=== PATIENT | female | born 1965 | race Caucasian/White ===

== ENCOUNTER 2016-11-20 10:15 | Emergency (ER) | payer OTHER, MEDICAID ==
[~2016-11-20] VITALS: Ht 160 cm; Wt 60.0 kg
[~2016-11-20 10:15] MED LIST: HYDR-3533 PO; METH750T2 PO
[2016-11-20 10:17] VITALS: BP 223/126; PULSE 101; RESP 15; TEMP 98.2; O2SAT 98
[2016-11-20 11:16] VITALS: BP 182/110; PULSE 90; RESP 18; O2SAT 98
--- NOTE | 2016-11-20 11:27 | PD ---
HPI Chief Complaint: Pain: Acute or Chronic Time Seen by Provider: 11:21 Travel History International Travel<30 days: No Contact w/Intl Traveler<30days: No History of Present Illness HPI 50-year-old female presents to the emergency department for evaluation of right upper back pain that started yesterday. She states she has associated shortness of breath. She states the pain is worse with breathing. Patient states the pain is sharp in nature. She denies any cough, congestion, fevers. She states she has chronic low back pain has been going on for several years. Low back pain is unchanged. She is concerned that she may have a urinary tract infection, but denies any dysuria, urinary frequency, urinary urgency. Patient denies any nausea or vomiting. She was a history of hypertension, but has been off her blood pressure medications for several years. She states she was previously on hydrochlorothiazide and lisinopril. However, she has not taken these in years. She does not currently have a primary care physician. Patient is a current tobacco smoker. Denies any illegal drug use. Patient denies he lost bladder control. No saddle anesthesias. Patient denies any history of DVT or PE. PFSH Past Medical History Diminished Hearing: No Hypertension: Yes ?: Not Past Surgical History Abdominal Surgery: Yes (HERNIA REPAIR) Section: Yes Cholecystectomy: Yes Social History Alcohol Use: No Tobacco Use: Yes Substance Use: No Allergies-Medications (Allergen,Severity, Reaction): Coded Allergies: Codeine (Verified Allergy, Mild, VOMITING, 11/20/16) Penicillin (Verified Allergy, Mild, SICK TO STOMACH AND EYE SWELLING, 11/20) Tylenol #3 (Verified Allergy, Mild, SICK, 11/20/16) Darvocet-N 100 (Verified Adverse Reaction, Mild, VOMITING, 11/20/16) Erythromycin (Verified Adverse Reaction, Mild, VOMITING, 11/20/16) Reported Meds & Prescriptions Reported Meds & Active Scripts Active Robaxin (Methocarbamol) 750 Mg Tab 750 Mg PO TID PRN Lortab 5 mg/325 mg (Hydrocodone/Acetaminophen 5 mg/325 mg) 1 Tab 1 Tab PO Q6H PRN Review of Systems Except as stated in HPI: all other systems reviewed are Neg Physical Exam Narrative GENERAL: Well-developed well-nourished female patient, ambulatory. Afebrile. SKIN: Warm and dry. HEAD: Normocephalic. Atraumatic. EYES: No scleral icterus. No injection or drainage. NECK: Supple, trachea midline. No JVD or lymphadenopathy. CARDIOVASCULAR: Regular rate and rhythm without murmurs, gallops, or rubs. RESPIRATORY: Breath sounds equal bilaterally. No accessory muscle use. Lungs sounds clear to auscultation. GASTROINTESTINAL: Abdomen soft, non-tender, nondistended. MUSCULOSKELETAL: No cyanosis, or edema. No reproducible thoracic or lumbar back pain. BACK: Nontender without obvious deformity. No CVA tenderness. Data Data Last Documented VS Vital Signs Date Time Temp Pulse Resp B/P Pulse Ox O2 Delivery O2 Flow Rate FiO2 11/20/16 11:57 77 18 177/111 98 Room Air 11/20/16 10:17 98.2 Orders Electrocardiogram (11/20/16 11:19) Basic Metabolic Panel (Bmp) (11/20/16 11:19) Ckmb (Isoenzyme) Profile (11/20/16 11:19) Complete Blood Count With Diff (11/20/16 11:19) D-Dimer (11/20/16 11:19) Magnesium (Mg) (11/20/16 11:19) Troponin I (11/20/16 11:19) Chest, Single Ap (11/20/16 11:19) Ecg Monitoring (11/20/16 11:19) Bilateral Bp Monitoring (11/20/16 11:19) Iv Access Insert/Monitor (11/20/16 11:19) Oximetry (11/20/16 11:19) Oxygen Administration (11/20/16 11:19) Sodium Chloride 0.9% Flush (Ns Flush) (11/20/16 11:30) Urinalysis - C+S If Indicated (11/20/16 11:19) Labetalol Inj (Trandate Inj) (11/20/16 11:30) Ketorolac Inj (Toradol Inj) (11/20/16 12:00) Labs Laboratory Tests Test 11/20/16 11/20/16 11:12 11:26 White Blood Count 8.1 TH/MM3 Red Blood Count 4.79 MIL/MM3 Hemoglobin 14.9 GM/DL Hematocrit 43.7 % Mean Corpuscular Volume 91.3 FL Mean Corpuscular Hemoglobin 31.0 PG Mean Corpuscular Hemoglobin 34.0 % Concent Red Cell Distribution Width 13.4 % Platelet Count 265 TH/MM3 Mean Platelet Volume 8.3 FL Neutrophils (%) (Auto) 71.8 % Lymphocytes (%) (Auto) 18.4 % Monocytes (%) (Auto) 8.8 % Eosinophils (%) (Auto) 0.5 % Basophils (%) (Auto) 0.5 % Neutrophils # (Auto) 5.8 TH/MM3 Lymphocytes # (Auto) 1.5 TH/MM3 Monocytes # (Auto) 0.7 TH/MM3 Eosinophils # (Auto) 0.0 TH/MM3 Basophils # (Auto) 0.0 TH/MM3 CBC Comment DIFF FINAL Differential Comment D-Dimer Quantitative (PE/DVT) 0.21 MG/L FEU Sodium Level 140 MEQ/L Potassium Level 3.9 MEQ/L Chloride Level 103 MEQ/L Carbon Dioxide Level 31.3 MEQ/L Anion Gap 6 MEQ/L Blood Urea Nitrogen 10 MG/DL Creatinine 0.87 MG/DL Estimat Glomerular Filtration 68 ML/MIN Rate Random Glucose 95 MG/DL Calcium Level 9.2 MG/DL Magnesium Level 2.1 MG/DL Total Creatine Kinase 45 U/L Troponin I LESS THAN 0.02 NG/ML Urine Color YELLOW Urine Turbidity CLEAR Urine pH 6.0 Urine Specific [place] 1.007 Urine Protein NEG mg/dL Urine Glucose (UA) NEG mg/dL Urine Ketones NEG mg/dL Urine Occult Blood TRACE Urine Nitrite NEG Urine Bilirubin NEG Urine Urobilinogen LESS THAN 2.0 MG/DL Urine Leukocyte Esterase NEG Urine RBC 2 /hpf Urine WBC LESS THAN 1 /hpf Urine Squamous Epithelial <1 /hpf Cells Urine Mucus FEW /lpf Microscopic Urinalysis Comment CULT NOT INDICATED MDM Medical Decision Making Medical Screen Exam Complete: Yes Emergency Medical Condition: Yes Medical Record Reviewed: Yes Interpretation(s) chest x-ray - CONCLUSION: No acute disease. No significant change has occurred. Differential Diagnosis Pleurisy versus pneumonia versus pneumothorax versus PE versus muscle strain versus muscle spasm versus UTI Narrative Course 50-year-old female presents to the emergency department for evaluation of right upper back pain that started yesterday that is worse with deep breathing associated with shortness of breath. She also reports chronic low back pain. EKG, CBC, BMP, CK, troponin, magnesium, d-dimer, chest x-ray, UA are ordered and pending. Patient is given labetalol 10 mg IV for hypertension. EKG shows sinus rhythm, heart rate 79, no acute ST changes.. CBC shows no acute abnormality. BMP is unremarkable. CK is 45. Troponin is less than 0.02. Magnesium is 2.1. D-dimer is 0.21. UA shows no evidence of acute infection. Chest x-ray shows no acute disease. Repeat blood pressure is 173/104. Physical exam and lab work is reassuring. Patient will be discharged with a prescription for lisinopril for hypertension, diclofenac and Robaxin for inflammation/muscle spasm. Patient verbalizes agreement and understanding. She is to return for any acute worsening of symptoms. The patient was discharged in stable condition with instructions, including return instructions and follow up instructions. Diagnosis Primary Impression: Hypertension Qualified Code: I10 - Essential hypertension Additional Impression: Muscle strain of chest wall Qualified Code: S29.011A - Muscle strain of chest wall, initial encounter Referrals: Primary Care Physician call for appointment Patient Instructions: Chronic Hypertension (ED), General Instructions, Muscle Strain (ED) Additional Instructions: Take Lisinopril as directed for hypertension. This is free at [employer]. Take diclofenac as instructed as needed with food for pain. This is $4 at [email or web address]. Take Robaxin as directed as needed for muscle pain/spasm. Follow-up with your primary care physician. Return to the emergency department for any acute worsening of symptoms. Med/Other Pt SpecificInfo: Prescription(s) given Scripts Lisinopril 10 Mg Tab10 Mg PO DAILY #30 TAB Ref 0 Prov:Nena Loya 11/20/16 Methocarbamol (Robaxin)750 Mg [id number] Mg PO TID PRN (MUSCLE SPASM) #21 TAB Ref 0 Prov:Nena Loya 11/20/[address] 75 Mg Tabdr75 Mg PO BID PRN (PAIN SCALE 1 TO 10) 10 Days Ref 0 Prov:Nena Loya 11/20/16 Disposition: 01 DISCHARGE HOME Condition: Stable Nena Loya Nov 20, 2016 11:27
[2016-11-20] MEDS ORDERED: SODIUM CHLORIDE 0.9% FLUSH 5 ML FLUSH IVF PRN (11:30)
[2016-11-20] MEDS ORDERED: LABETALOL HCL 100 MG/20 ML VIAL IV PUSH ONE (11:30)
[2016-11-20 11:36] VITALS: O2SAT 98
--- NOTE | 2016-11-20 11:44 | RADRPT ---
EXAM DATE/TIME: 11/20/2016 11:28 [facility] COMPARISON: CHEST SINGLE AP, February 13, 2014, 10:02. INDICATIONS : Chest pain. MEDICAL HISTORY : Hypertension. SURGICAL HISTORY : None. ENCOUNTER: Initial ACUITY: 3 days PAIN SCORE: 8/10 LOCATION: Right upper chest FINDINGS: A single view of the chest demonstrates the lungs to be symmetrically aerated without evidence of mas s, infiltrate or effusion. The cardiomediastinal contours are unremarkable. Osseous structures are intact. Stable old right sided rib fractures. CONCLUSION: No acute disease. No significant change has occurred. Martin Avendaño MD on November 20, 2016 at 11:42 Board Certified Radiologist. This report was verified electronically.
[2016-11-20 11:52] LABS: AUTOMATED NEUTROPHIL # 5.8 TH/MM3 (1.8-7.7); BASOPHIL % 0.5 % (0.0-2.0); EOSINOPHIL % 0.5 % (0.0-4.0); HEMATOCRIT 43.7 % (35.0-46.0); HEMO FLAGS DIFF FINAL; LYMPH % 18.4 % (9.0-44.0); LYMPHOCYTE # 1.5 TH/MM3 (1.0-4.8); MEAN CELL VOLUME 91.3 FL (80.0-100.0); MONO % 8.8 % (0.0-8.0); NEUT % 71.8 % (16.0-70.0); PLATELET COUNT 265 TH/MM3 (150-450); RED BLOOD COUNT 4.79 MIL/MM3 (4.00-5.30); RED CELL DISTRIBUTION WIDTH 13.4 % (11.6-17.2); WHITE BLOOD COUNT 8.1 TH/MM3 (4.0-11.0)
[2016-11-20 11:57] VITALS: BP 177/111; PULSE 77; RESP 18; O2SAT 98
[2016-11-20 12:00] LABS: BLOOD, URINE TRACE (NEG); COMMENT (UR) CULT NOT INDICATED; CULTURE IF INDICATED CULT NOT INDICATED; GLUCOSE,URINE NEG (NEG); KETONE, URINE NEG (NEG); MUCUS URINE FEW /lpf (OCC); NITRITE,URINE NEG (NEG); SQUAMOUS EPITHELIAL CELL URINE <1 /hpf (0-5); URINE COLOR YELLOW (YELLW/STRAW)
[2016-11-20] MEDS ORDERED: KETOROLAC TROMETHAMINE 30 MG/ML (IVP) VIAL IV PUSH ONE (12:00)
[2016-11-20 12:13] LABS: ANION GAP 6 MEQ/L (5-15); BICARBONATE 31.3 MEQ/L (21.0-32.0); BLOOD UREA NITROGEN 10 MG/DL (7-18); CHLORIDE 103 MEQ/L (98-107); GLOMERULAR FILTRATION RATE 68 ML/MIN (>89); MAGNESIUM 2.1 MG/DL (1.5-2.5); POTASSIUM 3.9 MEQ/L (3.5-5.1); SODIUM (NA) 140 MEQ/L (136-145)
[2016-11-20 12:16] LABS: CREATINE KINASE 45 U/L (26-192)
[2016-11-20] MEDS ORDERED: DICL75TA PO (12:34)
[2016-11-20] MEDS ORDERED: ROBA750T PO (12:34)
[2016-11-20] MEDS ORDERED: LISI10TA3 PO (12:34)
[2016-11-20 12:43] VITALS: BP 173/104
[2016-11-20 14:45] VITALS: BP 128/65; PULSE 89; RESP 16; O2SAT 99
--- NOTE | 2016-11-20 21:49 | EKG ---
Date Performed: 11/20/2016 Time Performed: 11:31:53 PTAGE: 50 years EKG: Sinus rhythm NORMAL ECG PREVIOUS TRACING : 02/13/2014 09.27 No significant change from previous tracing noted. DOCTOR: Ramesh Urrutia Interpretating Date/Time 11/20/2016 21:48:27
== END 2016-11-20 12:45 | disposition home or self-care (01) ==
LOC: NEPA 10:15
DX: I10 Essential (primary) hypertension (principal); S29.011A Strain of muscle and tendon of front wall of thorax, initial encounter; Z72.0 Tobacco use; X58.XXXA Exposure to other specified factors, initial encounter; Y93.9 Activity, unspecified; Y92.9 Unspecified place or not applicable; Y99.9 Unspecified external cause status
CPT/HCPCS: 71010; 80048; 81001; 82550; 83735; 84484; 85025; 85379; 93005; 96374; 96375; 99284; J1885

== ENCOUNTER 2017-07-16 14:40 | Emergency (ER) | payer SELFPAY ==
[~2017-07-16] VITALS: Ht 160 cm; Wt 55.5 kg
[~2017-07-16 14:40] MED LIST changes: +DICL75TA PO; +LISI10TA3 PO; +ROBA750T PO
[2017-07-16 14:42] VITALS: BP 237/134; PULSE 96; RESP 16; TEMP 97.8; O2SAT 98
[2017-07-16 14:59] VITALS: BP 210/117; PULSE 82; RESP 20; O2SAT 99
[2017-07-16] MEDS ORDERED: MORPHINE SULFATE 4 MG/ML INJ IV PUSH ONE ×2 (15:15→17:00)
[2017-07-16] MEDS ORDERED: LABETALOL HCL 100 MG/20 ML VIAL IV PUSH ONE (15:15)
[2017-07-16] MEDS ORDERED: ONDANSETRON HCL 4 MG/2 ML VIAL IV PUSH ONE (15:15)
--- NOTE | 2017-07-16 15:29 | RADRPT ---
EXAM DATE/TIME: 07/16/2017 16:06 [facility] COMPARISON: CHEST SINGLE AP, November 20, 2016, 11:28. INDICATIONS : Chest pain. fell one week ago. MEDICAL HISTORY : Hypertension. SURGICAL HISTORY : section. ENCOUNTER: Initial ACUITY: 1 day PAIN SCORE: 7/10 LOCATION: Right upper chest FINDINGS: A single view of the chest demonstrates the lungs to be symmetrically aerated without evidence of mas s, infiltrate or effusion. There is hyperaeration bilaterally. There is chronic stable interstitial c hanges. The cardiomediastinal contours are unremarkable. Osseous structures are stable. There is an old healed right-sided rib fractures. No significant changes. CONCLUSION: No acute disease. No significant change has occurred. Martin Avendaño MD on July 16, 2017 at 15:26 Board Certified Radiologist. This report was verified electronically.
[2017-07-16 15:34] LABS: AUTOMATED NEUTROPHIL # 4.8 TH/MM3 (1.8-7.7); BASOPHIL # 0.1 TH/MM3 (0-0.2); BASOPHIL % 0.8 % (0.0-2.0); EOSINOPHIL % 0.5 % (0.0-4.0); HEMATOCRIT 43.2 % (35.0-46.0); HEMO FLAGS DIFF FINAL; LYMPH % 24.3 % (9.0-44.0); LYMPHOCYTE # 1.8 TH/MM3 (1.0-4.8); MEAN CELL VOLUME 92.3 FL (80.0-100.0); MEAN CORPUSCULAR HGB CONC 33.6 % (32.0-36.0); MONO % 8.3 % (0.0-8.0); NEUT % 66.1 % (16.0-70.0); PLATELET COUNT 292 TH/MM3 (150-450); RED BLOOD COUNT 4.68 MIL/MM3 (4.00-5.30); RED CELL DISTRIBUTION WIDTH 13.6 % (11.6-17.2); WHITE BLOOD COUNT 7.3 TH/MM3 (4.0-11.0)
--- NOTE | 2017-07-16 15:40 | PD ---
HPI Chief Complaint: Hypertension Time Seen by Provider: 15:01 Travel History International Travel<30 days: No Contact w/Intl Traveler<30days: No Traveled to known affect area: No History of Present Illness HPI 51-year-old female that presents to the ED for evaluation of hypertension and chest pain as well as left sciatica pain. Per patient she has a history of hypertension and takes lisinopril and HCTZ. She's been out of his medications for some time as she has no PCP has not been able to get her refill of it. Per patient and her blood pressure has been high secondary to this. She states that about 2 days ago she accidentally tripped and fell and landed into her right chest on a piece of furniture. She developed severe pain since but the pain seemed to get better until yesterday her significant other was rubbing her back and she felt a pop in more pain. Per patient the pain now is more severe. Per patient the pain is 7 out of 10. She states that since having this fall she's been walking a little bit more off and she believes that she. Something on her sciatica. Per patient she has history of sciatica and he feels similar. The patient she has pain on her left buttocks the most of her leg. She has any numbness, tilling, weakness. No urinary or bowel movement issues. No abdominal pain. She takes no blood thinners. She has been taking ibuprofen with minimal relief. Pain per patient is more significant on the chest. She states that he gets worse with deep breaths. Has not seen anybody for this. No head injury or loss of consciousness. PFSH Past Medical History Diminished Hearing: No Hypertension: Yes Medical other: Yes ("SPOT ON LIVER 8 YEARS NEVER RECHECKED") Musculoskeletal: Yes (CHRONIC BACK PAIN ) Tetanus Vaccination: > 5 Years Influenza Vaccination: No ?: Not : 4 Para: 4 Miscarriage: 0 : 0 Past Surgical History Abdominal Surgery: Yes (HERNIA REPAIR) Section: Yes (X1) Cholecystectomy: Yes Social History Alcohol Use: Yes (OCC/WEEKENDS) Tobacco Use: Yes (1/2PPD) Substance Use: No Allergies-Medications (Allergen,Severity, Reaction): Coded Allergies: acetaminophen (Unverified Allergy, Mild, SICK, 07/16/17) codeine (Unverified Allergy, Mild, SICK, 07/16/17) penicillin G (Unverified Allergy, Mild, SICK TO STOMACH AND EYE SWELLING, 07/16/17) erythromycin base (Unverified Adverse Reaction, Mild, VOMITING, 07/16/17) propoxyphene (Unverified Adverse Reaction, Mild, VOMITING, 07/16/17) Reported Meds & Prescriptions Reported Meds & Active Scripts Active Robaxin (Methocarbamol) 500 Mg Tab 1,000 Mg PO TID Lortab (Hydrocodone-Acetaminophen) 5-325 Mg Tab 1 Tab PO Q6H PRN Diclofenac Sodium DR (Diclofenac Sodium) 75 Mg Tabdr 75 Mg PO BID PRN Lisinopril 10 Mg Tab 10 Mg PO DAILY Review of Systems Except as stated in HPI: all other systems reviewed are Neg Physical Exam Narrative GENERAL: SKIN: Warm and dry. HEAD: Atraumatic. Normocephalic. EYES: Pupils equal and round. No scleral icterus. No injection or drainage. ENT: No nasal bleeding or discharge. Mucous membranes pink and moist. Tongue is midline. No uvula deviation. NECK: Trachea midline. No JVD. CARDIOVASCULAR: Regular rate and rhythm. No murmurs, S3, S4. Patient does have reproducible pain with touch in the right chest. RESPIRATORY: No accessory muscle use. Clear to auscultation. Breath sounds equal bilaterally. GASTROINTESTINAL: Abdomen soft, non-tender, nondistended. Hepatic and splenic margins not palpable. MUSCULOSKELETAL: Extremities without clubbing, cyanosis, or edema. No obvious deformities. Full range of motion of the upper and lower extremities bilaterally. 2+ pulses bilaterally. Neurovascular intact. NEUROLOGICAL: Awake and alert. No obvious cranial nerve deficits. Motor grossly within normal limits. Five out of 5 muscle strength in the arms and legs. Normal speech. PSYCHIATRIC: Appropriate mood and affect; insight and judgment normal. Data Data Last Documented VS Vital Signs Date Time Temp Pulse Resp B/P (MAP) Pulse Ox O2 Delivery O2 Flow Rate FiO2 07/16/17 16:08 62 16 164/102 (122) 99 Room Air 07/16/17 14:42 97.8 Orders Orders Morphine Inj (Morphine Inj) (07/16/17 15:15) Ondansetron Inj (Zofran Inj) (07/16/17 15:15) Electrocardiogram (07/16/17 15:09) Basic Metabolic Panel (Bmp) (07/16/17 15:09) Ckmb (Isoenzyme) Profile (07/16/17 15:09) Complete Blood Count With Diff (07/16/17 15:09) Troponin I (07/16/17 15:09) Lipase (07/16/17 15:09) Chest, Single Ap (07/16/17 15:09) Ct Thorax/ Chest W Iv Contrast (07/16/17 ) Labetalol Inj (Trandate Inj) (07/16/17 15:15) Hepatic Functional Panel (07/16/17 15:25) Iohexol 350 Inj (Omnipaque 350 Inj) (07/16/17 16:38) Morphine Inj (Morphine Inj) (07/16/17 17:00) Ketorolac Inj (Toradol Inj) (07/16/17 17:00) Labs Laboratory Tests Test 07/16/17 15:25 White Blood Count 7.3 TH/MM3 Red Blood Count 4.68 MIL/MM3 Hemoglobin 14.5 GM/DL Hematocrit 43.2 % Mean Corpuscular Volume 92.3 FL Mean Corpuscular Hemoglobin 31.0 PG Mean Corpuscular Hemoglobin Concent 33.6 % Red Cell Distribution Width 13.6 % Platelet Count 292 TH/MM3 Mean Platelet Volume 8.5 FL Neutrophils (%) (Auto) 66.1 % Lymphocytes (%) (Auto) 24.3 % Monocytes (%) (Auto) 8.3 % Eosinophils (%) (Auto) 0.5 % Basophils (%) (Auto) 0.8 % Neutrophils # (Auto) 4.8 TH/MM3 Lymphocytes # (Auto) 1.8 TH/MM3 Monocytes # (Auto) 0.6 TH/MM3 Eosinophils # (Auto) 0.0 TH/MM3 Basophils # (Auto) 0.1 TH/MM3 CBC Comment DIFF FINAL Differential Comment Blood Urea Nitrogen 11 MG/DL Creatinine 0.98 MG/DL Random Glucose 90 MG/DL Total Protein 8.2 GM/DL Albumin 3.8 GM/DL Calcium Level 8.7 MG/DL Alkaline Phosphatase 123 U/L Aspartate Amino Transf (AST/SGOT) 18 U/L Alanine Aminotransferase (ALT/SGPT) 32 U/L Total Bilirubin 0.4 MG/DL Direct Bilirubin 0.1 MG/DL Sodium Level 139 MEQ/L Potassium Level 3.5 MEQ/L Chloride Level 105 MEQ/L Carbon Dioxide Level 29.2 MEQ/L Anion Gap 5 MEQ/L Estimat Glomerular Filtration Rate 59 ML/MIN Indirect Bilirubin 0.3 MG/DL Total Creatine Kinase 44 U/L Troponin I LESS THAN 0.02 NG/ML Lipase 105 U/L MDM Medical Decision Making Medical Screen Exam Complete: Yes Emergency Medical Condition: Yes Medical Record Reviewed: Yes Interpretation(s) CBC & BMP Diagram 07/16/17 15:25 Total Protein 8.2, Albumin 3.8, Calcium Level 8.7, Alkaline Phosphatase 123 H, Aspartate Amino Transf (AST/SGOT) 18, Alanine Aminotransferase (ALT/SGPT) 32, Total Bilirubin 0.4, Direct Bilirubin 0.1 troponin and CKMB negative EKG shows sinus rhythm with no sign of acute ischemia or arrythmia. Read by me and attending. Last Impressions Chest X-Ray 07/16/17 1509 Signed Impressions: Service Date/Time: Sunday, July 16, 2017 16:06 - CONCLUSION: No acute disease. No significant change has occurred. Martin Avendaño MD Chest CT 07/16/17 0000 Signed Impressions: Service Date/Time: Sunday, July 16, 2017 16:26 - CONCLUSION: No acute disease. Juan Tejeda Jr., MD Differential Diagnosis Sciatica versus chest pain versus fracture versus pulmonary contusion versus rib fracture versus hepatic injury versus sciatica versus hypertension versus hypertensive emergency versus normal exam Narrative Course 51-year-old female that presents to the ED for evaluation of chest pain after fall as well as hypertension and left sciatica. Patient was properly examined and was found to have signs and symptoms consistent with hypertension as well as appears to be muscular chest pain. Labs and imaging were ordered. Patient was given IV pain medications and labetalol. Labs and imaging showed no sign of acute disease. Patient was reassured. This appears to be contusion and sciatica. Patient's blood pressure the came down with labetalol. Patient was given a refill of her lisinopril. Patient was given prescriptions for pain medication including Robaxin, diclofenac sodium and Lortab. Patient was told that she needs to follow closely with PCP. See ED worsening symptoms. Ice or warm compresses. Rest and fluids as needed. Diagnosis Primary Impression: Chest wall contusion Qualified Codes: S20.211A - Contusion of right front wall of thorax, initial encounter Additional Impressions: Sciatica of left side Hypertension Qualified Codes: I10 - Essential (primary) hypertension Patient Instructions: General Instructions, Narcotic given in the ED Additional Instructions: Take medications as prescribed. Follow-up with PCP. See ED for any worsening symptoms. Do not drink or drive while taking pain medication. Apply ice or heat as needed for pain Med/Other Pt SpecificInfo: Prescription(s) given Scripts Methocarbamol (Robaxin) 500 Mg Tab 1000 MG PO TID for Muscle Spasm, #20 TAB 0 Refills Prov: Anil Mojica MD 07/16/17 Hydrocodone-Acetaminophen (Lortab) 5-325 Mg Tab 1 TAB PO Q6H Y for PAIN, #14 TAB 0 Refills Prov: Anil Mojica MD 07/16/[address] (Diclofenac Sodium DR) 75 Mg Tabdr 75 MG PO BID Y for PAIN SCALE 1 TO 10, #20 TAB 0 Refills Prov: Anil Mojica MD 07/16/17 Lisinopril (Lisinopril) 10 Mg Tab 10 MG PO DAILY, #30 TAB 0 Refills Prov: Anil Mojica MD 07/16/17 Disposition: 01 DISCHARGE HOME Condition: Brian Peralta Jul 16, 2017 15:40
[2017-07-16 16:04] VITALS: BP 187/98; PULSE 69; RESP 16; O2SAT 99
[2017-07-16 16:08] VITALS: BP 164/102; PULSE 62; RESP 16; O2SAT 99
[2017-07-16 16:11] LABS: ALT (GPT) 32 U/L (10-53); ANION GAP 5 MEQ/L (5-15); AST (GOT) 18 U/L (15-37); BICARBONATE 29.2 MEQ/L (21.0-32.0); BLOOD UREA NITROGEN 11 MG/DL (7-18); CHLORIDE 105 MEQ/L (98-107); GLOMERULAR FILTRATION RATE 59 ML/MIN (>89); POTASSIUM 3.5 MEQ/L (3.5-5.1); SODIUM (NA) 139 MEQ/L (136-145)
[2017-07-16 16:16] LABS: ALKALINE PHOSPHATASE 123 U/L (45-117); INDIRECT BILIRUBIN 0.3 MG/DL (0.0-0.8); TOTAL BILIRUBIN ADULT 0.4 MG/DL (0.2-1.0)
[2017-07-16 16:19] LABS: CREATINE KINASE 44 U/L (26-192)
[2017-07-16] MEDS ORDERED: IOHEXOL 350 MG/ML 10 ML VIAL (for RAD DIAG) IVCONTRAST ONE (16:38)
--- NOTE | 2017-07-16 16:52 | RADRPT ---
EXAM DATE/TIME: 07/16/2017 16:26 [facility] COMPARISON: No previous studies available for comparison. INDICATIONS : fall a week ago with right chest pain and back pain. IV CONTRAST: 70 cc Omnipaque 350 (iohexol) IV RADIATION DOSE: 3.32 CTDIvol (mGy) MEDICAL HISTORY : Hypertension. SURGICAL HISTORY : Cholecystectomy. Hernia. ENCOUNTER: Initial ACUITY: 1 week PAIN SCALE: 7/10 LOCATION: Right chest TECHNIQUE: Volumetric scanning of the chest was performed. Using automated exposure control and adjustment of t he mA and/or kV according to patient size, radiation dose was kept as low as reasonably achievable to obtain optimal diagnostic quality images. DICOM format image data is available electronically for review and comparison. Follow-up recommendations for detected pulmonary nodules are based at a minimum on nodule size and pa tient risk factors according to Fleischner Society Guidelines. FINDINGS: LUNGS: There is no consolidation or pneumothorax. No concerning pulmonary nodule is visualized. PLEURA: There is no pleural thickening or pleural effusion. MEDIASTINUM: The heart and great vessels demonstrate no acute abnormality. There is no mediastinal or hilar lymph adenopathy. AXILLAE: Within normal limits. No lymphadenopathy. SKELETAL: Within normal limits for patient age. MISCELLANEOUS: The visualized upper abdominal organs demonstrate no acute abnormality. CONCLUSION: No acute disease. Juan Tejeda Jr., MD on July 16, 2017 at 16:46 Board Certified Radiologist. This report was verified electronically.
[2017-07-16] MEDS ORDERED: LISI10TA3 PO (16:56)
[2017-07-16] MEDS ORDERED: DICL75TA PO (16:56)
[2017-07-16] MEDS ORDERED: HYDR-3533 PO (16:56)
[2017-07-16] MEDS ORDERED: ROBA500T PO (16:56)
[2017-07-16] MEDS ORDERED: KETOROLAC TROMETHAMINE 30 MG/ML (IVP) VIAL IV PUSH ONE (17:00)
[2017-07-16 17:16] VITALS: RESP 20
--- NOTE | 2017-07-18 13:48 | EKG ---
Date Performed: 07/16/2017 Time Performed: 14:24:32 PTAGE: 51 years EKG: Sinus rhythm , rate 85 bpm Normal ECG NO PREVIOUS TRACING DOCTOR: Anatoliy Balderas Interpretating Date/Time 07/19/2017 13:25:38
== END 2017-07-16 17:52 | disposition home or self-care (01) ==
LOC: NEPE 14:40
DX: S20.211A Contusion of right front wall of thorax, initial encounter (principal); I10 Essential (primary) hypertension; M54.32 Sciatica, left side; F17.210 Nicotine dependence, cigarettes, uncomplicated; W01.190A Fall on same level from slipping, tripping and stumbling with subsequent striking against furniture, initial encounter
CPT/HCPCS: 71010; 71260; 80048; 80076; 82550; 83690; 84484; 85025; 93005; 96374; 96375; 96376; 99285; J1885; J2270; J2405; Q9967

== ENCOUNTER 2018-03-07 10:19 | Emergency (ER) | payer SELFPAY ==
[~2018-03-07] VITALS: Ht 157.5 cm; Wt 55.0 kg
[~2018-03-07 10:19] MED LIST changes: -METH750T2 PO; +ROBA500T PO; -ROBA750T PO
[2018-03-07 10:20] VITALS: BP 168/80; PULSE 87; RESP 16; TEMP 98.9; O2SAT 99
[2018-03-07] MEDS ORDERED: SODIUM CHLORIDE 0.9% FLUSH 10 ML FLUSH IV FLUSH PRN (12:00)
--- NOTE | 2018-03-07 12:09 | PD ---
HPI Chief Complaint: Back/ Neck Pain or Injury Time Seen by Provider: 11:49 Travel History International Travel<30 days: No Contact w/Intl Traveler<30days: No Traveled to known affect area: No History of Present Illness HPI Patient comes in complaining of right-sided back pain that she woke with yesterday. Patient reports that she was rolled over in bed when the pain began. Patient reports pain radiates up and down her right posterior/lateral thoracic cavity and down to her right groin. Patient denies any loss change in bowel or bladder, chest pain, shortness of breath, fevers, vaginal discharge, or known injury. Patient reports history of cholecystectomy. Pain is worse with certain movement and deep inspiration. Patient tried in the laying and heating pad without improvement of symptoms. PFSH Past Medical History Diminished Hearing: No Hypertension: Yes Musculoskeletal: Yes (CHRONIC BACK PAIN ) ?: Not : 4 Para: 4 Miscarriage: 0 : 0 Past Surgical History Abdominal Surgery: Yes (HERNIA REPAIR) Section: Yes (X1) Cholecystectomy: Yes Social History Alcohol Use: Yes (OCC/WEEKENDS) Tobacco Use: Yes (1/2PPD) Substance Use: No Allergies-Medications (Allergen,Severity, Reaction): Coded Allergies: acetaminophen (Unverified Allergy, Mild, SICK, 07/16/17) codeine (Unverified Allergy, Mild, SICK, 07/16/17) penicillin G (Unverified Allergy, Mild, SICK TO STOMACH AND EYE SWELLING, 07/16/17) erythromycin base (Unverified Adverse Reaction, Mild, VOMITING, 07/16/17) propoxyphene (Unverified Adverse Reaction, Mild, VOMITING, 07/16/17) Reported Meds & Prescriptions Reported Meds & Active Scripts Active Ketorolac (Ketorolac Tromethamine) 10 Mg Tab 10 Mg PO TID Robaxin (Methocarbamol) 500 Mg Tab 1,000 Mg PO TID Lortab (Hydrocodone-Acetaminophen) 5-325 Mg Tab 1 Tab PO Q6H PRN Diclofenac Sodium DR (Diclofenac Sodium) 75 Mg Tabdr 75 Mg PO BID PRN Lisinopril 10 Mg Tab 10 Mg PO DAILY Review of Systems Except as stated in HPI: all other systems reviewed are Neg Physical Exam Narrative GENERAL: Well-developed, well nourished, in no acute distress, and non-ill appearing. SKIN: Focused skin assessment warm and dry. HEAD: Atraumatic. Normocephalic. EYES: Pupils equal and round. EOMI. No scleral icterus. No injection or drainage. ENT: No nasal bleeding or discharge. Mucous membranes pink and moist. NECK: Trachea midline. Supple. No nuclear rigidity. CARDIOVASCULAR: Regular rate and rhythm. No murmur appreciated. RESPIRATORY: No accessory muscle use. No respiratory distress. Clear to auscultation. Breath sounds equal bilaterally. GASTROINTESTINAL: Abdomen soft, non-tender, nondistended, and no guarding. Hepatic and splenic margins not palpable. Normal bowel sounds x4. No pulsatile mass. MUSCULOSKELETAL: No obvious deformities. No clubbing. No cyanosis. No edema. Full range of motion. No tenderness or crepitus throughout spinal column. Patient moving all 4 limbs without difficulty. Normal gait. Straight leg test negative bilaterally. NEUROLOGICAL: Awake and alert. No obvious cranial nerve deficits. Motor grossly within normal limits. Normal speech. PSYCHIATRIC: Appropriate mood and affect; insight and judgment normal. Data Data Last Documented VS Vital Signs Date Time Temp Pulse Resp B/P (MAP) Pulse Ox O2 Delivery O2 Flow Rate FiO2 03/07/18 10:20 98.9 87 16 168/80 (109) 99 Orders Orders Complete Blood Count With Diff (03/07/18 11:56) Comprehensive Metabolic Panel (03/07/18 11:56) Lipase (03/07/18 11:56) Prothrombin Time / Inr (Pt) (03/07/18 11:56) Act Partial Throm Time (Ptt) (03/07/18 11:56) Urinalysis - C+S If Indicated (03/07/18 11:56) Ct Abd/Pel W/O Iv Contrast (03/07/18 11:56) Iv Access Insert/Monitor (03/07/18 11:56) Ecg Monitoring (03/07/18 11:56) Oximetry (03/07/18 11:56) Sodium Chloride 0.9% Flush (Ns Flush) (03/07/18 12:00) Chest, Pa & Lat (03/07/18 ) Ketorolac Inj (Toradol Inj) (03/07/18 12:45) Al-Mag Hy-Si 40-40-4 Mg/Ml Liq (Mag-Al P (03/07/18 14:00) Lidocaine 2% Viscous (Xylocaine 2% Visco (03/07/18 14:00) Methocarbamol (Robaxin) (03/07/18 14:00) Ed Discharge Order (03/07/18 13:50) Labs Laboratory Tests Test 03/07/18 12:10 White Blood Count 10.1 TH/MM3 Red Blood Count 4.37 MIL/MM3 Hemoglobin 13.5 GM/DL Hematocrit 39.7 % Mean Corpuscular Volume 90.8 FL Mean Corpuscular Hemoglobin 30.9 PG Mean Corpuscular Hemoglobin Concent 34.0 % Red Cell Distribution Width 13.3 % Platelet Count 288 TH/MM3 Mean Platelet Volume 8.1 FL Neutrophils (%) (Auto) 73.4 % Lymphocytes (%) (Auto) 16.2 % Monocytes (%) (Auto) 9.6 % Eosinophils (%) (Auto) 0.4 % Basophils (%) (Auto) 0.4 % Neutrophils # (Auto) 7.4 TH/MM3 Lymphocytes # (Auto) 1.6 TH/MM3 Monocytes # (Auto) 1.0 TH/MM3 Eosinophils # (Auto) 0.0 TH/MM3 Basophils # (Auto) 0.0 TH/MM3 CBC Comment DIFF FINAL Differential Comment Prothrombin Time 10.4 SEC Prothromb Time International Ratio 1.0 RATIO Activated Partial Thromboplast Time 25.4 SEC Urine Color YELLOW Urine Turbidity CLEAR Urine pH 6.0 Urine Specific [place] 1.017 Urine Protein NEG mg/dL Urine Glucose (UA) NEG mg/dL Urine Ketones NEG mg/dL Urine Occult Blood TRACE Urine Nitrite NEG Urine Bilirubin NEG Urine Urobilinogen LESS THAN 2.0 MG/DL Urine Leukocyte Esterase NEG Urine RBC LESS THAN 1 /hpf Urine WBC LESS THAN 1 /hpf Urine Squamous Epithelial Cells 1 /hpf Urine Bacteria OCC /hpf Urine Mucus FEW /lpf Microscopic Urinalysis Comment CULT NOT INDICATED Blood Urea Nitrogen 10 MG/DL Creatinine 0.80 MG/DL Random Glucose 85 MG/DL Total Protein 7.3 GM/DL Albumin 3.4 GM/DL Calcium Level 8.2 MG/DL Alkaline Phosphatase 89 U/L Aspartate Amino Transf (AST/SGOT) 12 U/L Alanine Aminotransferase (ALT/SGPT) 50 U/L Total Bilirubin 0.5 MG/DL Sodium Level 141 MEQ/L Potassium Level 3.6 MEQ/L Chloride Level 105 MEQ/L Carbon Dioxide Level 28.4 MEQ/L Anion Gap 8 MEQ/L Estimat Glomerular Filtration Rate 75 ML/MIN Lipase 75 U/L [facility] Medical Decision Making Medical Screen Exam Complete: Yes Emergency Medical Condition: Yes Interpretation(s) Last Impressions Abdomen/Pelvis CT 03/07/18 1156 Signed Impressions: CONCLUSION: 1. No acute abnormality to explain the patient's pain. In particular, no renal stones or ureteral stones. 2. Prior cholecystectomy. Chest X-Ray 03/07/18 0000 Signed Impressions: CONCLUSION: No acute cardiopulmonary disease. Differential Diagnosis Costochondritis, pneumonia, pneumothorax, renal calculi, pyelonephritis, gastritis, appendicitis, UTI, metabolic disturbance Narrative Course The patient presented complaining of back pain. There was no history of recent fall or trauma. No fevers or other evidence to suspect infectious processes, abscess, osteomyelitis etc. The patients neurological exam is normal with normal motor and sensory. There is no saddle paresthesias reported and no bowel or bladder incontinence or retention. I suspect the pain is mechanical in nature. There was no significant history of vomiting or diarrhea and no fever. The patient appeared comfortable, well hydrated and the abdominal exam was only non-tender to me. Laboratory and radiologic evaluation revealed no significant abnormalities. There was no evidence of an acute, surgical abdomen at this time. There was no clinical evidence to support appendicitis, bowel obstruction , cholecystitis/cholelithiasis, pancreatitis, perforation of gastric ulcer, colitis, diverticulitis, bacterial peritonitis, obstruction, volvulus, hernial incarceration or strangulation at this time. There was no evidence to support vascular pathology such as AAA, mesenteric ischemia. There was also no clinical evidence by history, exam or risk factors to suggest atypical presentation of cardiac disease such as ACS, AMI or atypical angina. No evidence to suggest genitourinary etiology as well. Clinical picture was discussed with the patient , as well as plan of care. The patient was instructed to follow up with their physician. The patient is to return if worsens, pain worsens or changes, develop fever, inability to tolerate fluids with or without vomiting, unable to establish follow up or as needed. The patient agrees with plan. Patient in no obvious distress upon re-evaluation. All pertinent laboratory/ Radiology result(s) discussed with patient. Discussed patient with Dr. Matos prior discharge, who is in agreement plan of care and disposition. Patient was asked if they wanted to speak to my attending, which the patient did not wish to do at this time. Any questions/concerns in reference to patient diagnosis/condition discussed and clarified prior to patient's discharge. Reinforced sheer importance of close follow up with patient's primary physician or primary care clinic. Instructed patient to return to ED immediately, if symptoms return/worsen. Patient showed understanding of above instructions. Further instructions and recommendations were detailed in discharge paperwork. Patient ambulated without difficulty out of ED at discharge. Diagnosis Primary Impression: Musculoskeletal pain Referrals: [facility] Patient Instructions: General Instructions, Musculoskeletal Pain (ED) Additional Instructions: Follow-up with your primary care physician this week for reevaluation. Take all medication as prescribed. Return to the emergency department if symptoms get worse. Med/Other Pt SpecificInfo: Prescription(s) given Scripts Ketorolac (Ketorolac) 10 Mg Tab 10 MG PO TID for Pain Management, #15 TAB 0 Refills Prov: Herrera Matos MD 03/07/18 Methocarbamol (Robaxin) 500 Mg Tab 1000 MG PO TID for Muscle Spasm, #20 TAB 0 Refills Prov: Herrera Matos MD 03/07/18 Disposition: 01 DISCHARGE HOME Condition: Stable John Nuñez Mar 07, 2018 12:09
[2018-03-07 12:27] LABS: AUTOMATED NEUTROPHIL # 7.4 TH/MM3 (1.8-7.7); BASOPHIL % 0.4 % (0.0-2.0); EOSINOPHIL % 0.4 % (0.0-4.0); HEMATOCRIT 39.7 % (35.0-46.0); HEMOGLOBIN 13.5 GM/DL (11.6-15.3); LYMPH % 16.2 % (9.0-44.0); LYMPHOCYTE # 1.6 TH/MM3 (1.0-4.8); MEAN CELL VOLUME 90.8 FL (80.0-100.0); MEAN CORPUSCULAR HEMOGLOBIN 30.9 PG (27.0-34.0); MEAN PLATELET VOLUME 8.1 FL (7.0-11.0); MONO % 9.6 % (0.0-8.0); NEUT % 73.4 % (16.0-70.0); PLATELET COUNT 288 TH/MM3 (150-450); RED BLOOD COUNT 4.37 MIL/MM3 (4.00-5.30); RED CELL DISTRIBUTION WIDTH 13.3 % (11.6-17.2); WHITE BLOOD COUNT 10.1 TH/MM3 (4.0-11.0)
[2018-03-07 12:33] LABS: BACTERIA, URINE OCC /hpf; BILIRUBIN, URINE NEG (NEG); BLOOD, URINE TRACE (NEG); GLUCOSE,URINE NEG (NEG); KETONE, URINE NEG (NEG); MUCUS URINE FEW /lpf (OCC); NITRITE,URINE NEG (NEG); SQUAMOUS EPITHELIAL CELL URINE 1 /hpf (0-5); URINE COLOR YELLOW (YELLW/STRAW); URINE LEUKOCYTE ESTERASE NEG (NEG)
[2018-03-07 12:36] LABS: PROTHROMBIN TIME - PATIENT 10.4 SEC (9.8-11.6)
[2018-03-07] MEDS ORDERED: KETOROLAC TROMETHAMINE 30 MG/ML (IVP) VIAL IV PUSH ONE (12:45)
[2018-03-07 12:51] LABS: ALBUMIN 3.4 GM/DL (3.4-5.0); ALT (GPT) 50 U/L (10-53); AST (GOT) 12 U/L (15-37); BICARBONATE 28.4 MEQ/L (21.0-32.0); BLOOD UREA NITROGEN 10 MG/DL (7-18); CALCIUM 8.2 MG/DL (8.5-10.1); CHLORIDE 105 MEQ/L (98-107); GLOMERULAR FILTRATION RATE 75 ML/MIN (>89); GLUCOSE,RANDOM 85 MG/DL (74-106); SODIUM (NA) 141 MEQ/L (136-145)
[2018-03-07 12:53] LABS: ALKALINE PHOSPHATASE 89 U/L (45-117); TOTAL BILIRUBIN ADULT 0.5 MG/DL (0.2-1.0); TOTAL PROTEIN 7.3 GM/DL (6.4-8.2)
--- NOTE | 2018-03-07 12:55 | RADRPT ---
EXAM DATE: 03/07/2018 12:44 PM EDT AGE/SEX: 52 years / Female INDICATIONS: Left sided rib pain. No known injury. CLINICAL DATA: This is the patient's initial encounter. Patient reports that signs and symptoms have been present for 2 days and indicates a pain score of 10/10. MEDICAL/SURGICAL HISTORY: Hypertension. Smoker. Prior rib fractures None. COMPARISON: [facility] – [place], CHEST SINGLE AP, 07/16/2017. . FINDINGS: The lungs are clear without infiltrate, nodule, or mass. There is no appreciable pleural effusion for technique. Heart and mediastinum are unremarkable. There are old healed rib fractures on the right not significantly changed since the prior study. No definite acute rib fractures are see n. CONCLUSION: No acute cardiopulmonary disease. Electronically signed by: Kely Smith MD 03/07/2018 12:54 PM EDT
--- NOTE | 2018-03-07 13:38 | RADRPT ---
EXAM DATE: 03/07/2018 1:28 PM EDT AGE/SEX: 52 years / Female INDICATIONS: Right flank pain. CLINICAL DATA: This is the patient's initial encounter. Patient reports that signs and symptoms have been present for 1 day and indicates a pain score of 8/10. MEDICAL/SURGICAL HISTORY: Hypertension. Cholecystectomy. section. RADIATION DOSE: 6.77 CTDI (mGy) COMPARISON: [facility] – [place], [place] ABDOMEN & PELVIS W/O CONTRAST, 03/19/2015. . TECHNIQUE: Multiple contiguous axial images were obtained through the abdomen. Images were obtained using multiple row detector helical technique. Using dose reduction techniques, radiation dose was ke pt as low as reasonably achievable to obtain optimal diagnostic quality images. FINDINGS: Lower Lungs: Linear scarring within both bases. The visualized lower lungs are clear. Liver: The liver has a homogeneous density without space-occupying lesion. There is no dilation of th e biliary tree. Gallbladder surgically absent. Spleen: Homogeneous density without enlargement. Pancreas: Unremarkable without mass or calcification. Kidneys: Normal in size and shape. No evidence of mass or hydronephrosis. Adrenal Glands: Unremarkable. Aorta: Scattered calcified atherosclerotic plaque involving the aorta and inflow vessels. No aneury smal change.. Bowel/Mesentery: The bowel loops are grossly unremarkable. The cecum and sigmoid colon have a normal configuration. Abdominal Wall: Intact. Retroperitoneum: No evidence of adenopathy in the retrocrural, para-aortic, or deep pelvic regions. Bladder: Contours are smooth. Reproductive Organs: No abnormal masses or calcifications seen. Inguinal: The inguinal region is unremarkable without evidence of adenopathy. Bony Structures: Unremarkable. CONCLUSION: 1. No acute abnormality to explain the patient's pain. In particular, no renal stones or ureteral st ones. 2. Prior cholecystectomy. Electronically signed by: Juan Tejeda MD 03/07/2018 1:37 PM EDT
[2018-03-07] MEDS ORDERED: ROBA500T PO (13:48)
[2018-03-07] MEDS ORDERED: KETO10 PO (13:48)
[2018-03-07] MEDS ORDERED: ALUMINUM/MAGNESIUM/SIMETH 30 ML CUP PO ONE (14:00)
[2018-03-07] MEDS ORDERED: LIDOCAINE VISCOUS 2% SOLN 15 ML UDC PO ONE (14:00)
[2018-03-07] MEDS ORDERED: METHOCARBAMOL 500 MG TAB PO ONE (14:00)
== END 2018-03-07 14:13 | disposition home or self-care (01) ==
LOC: NEPD 10:19
DX: M79.1 Myalgia (principal); F17.200 Nicotine dependence, unspecified, uncomplicated; I10 Essential (primary) hypertension; R10.9 Unspecified abdominal pain; Z79.899 Other long term (current) drug therapy
CPT/HCPCS: 71046; 74176; 80053; 81001; 83690; 85025; 85610; 85730; 96374; 99285; J1885